=== PATIENT | male | born 1990 | race Caucasian/White ===

== ENCOUNTER 2023-12-28 07:33 | Day surgery (SDC) | payer BC ==
[~2023-12-28] VITALS: Ht 188 cm; Wt 126.4 kg
[~2023-12-28 07:33] MED LIST: Glycopyrrolate 0.2 MG/ML 1 ML VIAL ONE; LR 1,000 ML IV SCH; Lidocaine PF 2% (20 MG/ML) 5 ML VIAL ONE; Ondansetron 4 MG/2 ML VIAL IV PRN
[2023-12-28] MEDS ORDERED: LIPITOR 10MG10 MG PO (08:23)
[2023-12-28] MEDS ORDERED: HYZAAR 12.5 MG-1 TAB PO (08:24)
[2023-12-28] MEDS ORDERED: WELLBUTRIN XL300 M1 PO (08:24)
[2023-12-28] MEDS ORDERED: COZAAR100 MG PO (08:25)
[2023-12-28 08:36] VITALS: BP 133/91; PULSE 76; TEMP 97.9
[2023-12-28 09:05] VITALS: BP 113/83; PULSE 67; TEMP 97.9
[2023-12-28 09:15] VITALS: BP 113/48; PULSE 60
[2023-12-28 09:30] VITALS: BP 109/82; PULSE 67
--- NOTE | 2023-12-28 09:45 | NUR ---
0905-Pt returned via cart to recliner in bay 6. A&O. Patent IV infusing LR. Pt given water and crackers. in room. VSS-see flowsheet. Denies needs. 0945-Pts VS remain stable. Dr Chatterjee in to visit post procedure. IV removed, pressure dressing applied. Pt dressed and discharge teaching completed, verbalized understanding. Taken via wheelchair to private vehicle for dc home with driving.
== END 2023-12-28 09:45 | disposition home or self-care (01) ==
LOC: SDCO 07:33
DX: K92.1 Melena (principal); R19.7 Diarrhea, unspecified; K64.0 First degree hemorrhoids; R19.4 Change in bowel habit; G47.33 Obstructive sleep apnea (adult) (pediatric); Z80.0 Family history of malignant neoplasm of digestive organs; Z87.891 Personal history of nicotine dependence
CPT/HCPCS: J2704; J7120